=== PATIENT | female | born 2000 | race Caucasian/White ===

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

== ENCOUNTER 2018-06-09 19:20 | Emergency (ER) | payer OTHER ==
[2018-06-09 20:27] LABS: Appearance,Urine Cloudy (Clear); Bacteria,Urine Many /hpf; Bilirubin,Urine Negative (Negative); Blood,Urine Negative (Negative); Color,Urine Yellow; Glucose,Urine (UA) Negative (Negative); Ketones,Urine 1+ (Negative); Leukocyte Esterase,Urine Small (Negative); Mucus,Urine Occasional /hpf; Nitrite,Urine Positive (Negative); PH, Urine 5.5 (5.0-8.0); Protein,Urine Negative (Negative); Specific Gravity,Urine 1.019 (1.001-1.035); Squamous Epithelial Cell,Urine 11 /hpf (0-4); Urobilinogen,Urine <2.0 mg/dL (<2.0); WBC,Urine 1 /hpf (0-5)
[2018-06-09] MEDS ORDERED: KETOROLAC 30 MG/ML 1 ML VIAL IVP STA (21:06)
[2018-06-09] MEDS ORDERED: METOCLOPRAMIDE 5 MG/ML 2 ML VIAL IVP STA (21:06)
[2018-06-09] MEDS ORDERED: diphenhydrAMINE 50 MG/ML 1 ML VIAL IVP STA (21:06)
[2018-06-09] MEDS ORDERED: DEXTROSE 5%-0.45% NACL 1,000 ML IV ONE (21:24)
--- NOTE | 2018-06-09 21:33 | ED ---
Nausea/Vomiting/Diarrhea HPI - General Chief complaint: Nausea/Vomiting/Diarrhea Stated complaint: Vomiting blood, almost 3 months preg Time Seen by Provider: 06/09/18 21:03 Source: patient Mode of arrival: ambulatory Limitations: no limitations - History of Present Illness Initial comments: This patient is a 18-year-old woman who presents to be evaluated after she had an episode of vomiting and had seen some specks of blood in it. The patient states that she had a positive test at the end of April. The patient states she has been having daily nausea but usually only has an episode of vomiting in the morning. The patient states she was at work tonight when this occurred and she left there to come here. She denies any associated symptoms, including no fever or chills, no abdominal pain, no change in bowel movements. She has not had any urinary symptoms. No symptoms of anemia, including no chest pain, palpitations, dyspnea, lightheadedness, syncope or orthostasis. MD complaint: nausea, vomiting Onset/Timin -: hour(s) Description of Vomiting: blood-streaked Associated Abdominal Pain: No Severity scale (1-10): 0 Consistency: intermittent Improves with: none Worsens with: none Context: other () Associated Symptoms: nausea/vomiting - Related Data Home Medications Medication Instructions Recorded Confirmed Acetaminophen [Tylenol Extra 1,000 mg PO TID PRN 06/09/18 06/09/18 Strength] Pnv No.95/Ferrous Fum/Folic AC 1 tab PO DAILY 06/09/18 06/09/18 [ Multivitamin Tablet] Previous Rx's Medication Instructions Recorded Cephalexin [Keflex] 500 mg PO Q6HR #28 cap 06/09/18 Allergies Allergy/AdvReac Type Severity Reaction Status Date / Time Penicillins Allergy Rash/Hives Verified 06/09/18 21:57 Review of Systems ROS Statement: Those systems with pertinent positive or pertinent negative responses have been documented in the HPI. ROS Other: All systems not noted in ROS Statement are negative. Constitutional: Denies: fever, chills Respiratory: Denies: cough, dyspnea Cardiovascular: Denies: chest pain, palpitations, edema Gastrointestinal: Reports: nausea, vomiting, hematemesis. Denies: abdominal pain, diarrhea, melena, hematochezia Genitourinary: Denies: dysuria, frequency, hematuria Musculoskeletal: Denies: back pain Skin: Denies: rash Neurological: Reports: headache (Mild bifrontal). Denies: weakness, numbness, paresthesias, confusion Hematological/Lymphatic: Denies: easy bleeding Past Medical History Past Medical History: No Reported History History of Any Multi-Drug Resistant Organisms: None Reported Past Surgical History: No Surgical Hx Reported Additional Past Surgical History / Comment(s): freya removed 3 yrs old, Past Psychological History: No Psychological Hx Reported Smoking Status: Current every day smoker Past Alcohol Use History: None Reported Past Drug Use History: None Reported General Exam Limitations: no limitations General appearance: alert, in no apparent distress Head exam: Present: atraumatic, normocephalic Eye exam: Present: normal appearance. Absent: scleral icterus, conjunctival injection ENT exam: Present: normal oropharynx Neck exam: Present: normal inspection, full ROM Respiratory exam: Present: normal lung sounds bilaterally. Absent: respiratory distress, wheezes, rales, rhonchi, stridor Cardiovascular Exam: Present: regular rate, normal rhythm, normal heart sounds. Absent: systolic murmur, diastolic murmur, rubs, gallop GI/Abdominal exam: Present: soft. Absent: distended, tenderness, guarding, rebound, rigid, mass Extremities exam: Present: normal inspection, normal capillary refill. Absent: pedal edema, calf tenderness Back exam: Present: normal inspection. Absent: CVA tenderness (R), CVA tenderness (L) Neurological exam: Present: alert Skin exam: Present: warm, dry, intact, normal color. Absent: rash Course Vital Signs 06/09/18 19:59 Temperature 98.8 F Pulse Rate 74 Respiratory 16 Rate Blood Pressure 134/78 O2 Sat by Pulse 100 Oximetry Medical Decision Making - Lab Data Result diagrams: 06/09/18 21:34 06/09/18 21:34 Lab Results 06/09/18 06/09/18 06/09/18 Range/Units 20:00 20:00 21:34 WBC 15.3 H (4.0-11.0) k/uL RBC 4.01 (3.80-5.40) m/uL Hgb 12.9 (11.4-16.0) gm/dL Hct 38.8 (34.0-46.0) % MCV 96.9 (80.0-100.0) fL MCH 32.1 (25.0-35.0) pg MCHC 33.1 (31.0-37.0) g/dL RDW 12.5 (11.5-15.5) % Plt Count 217 (150-450) k/uL Neutrophils % 83 % Lymphocytes % 11 % Monocytes % 3 % Eosinophils % 1 % Basophils % 0 % Neutrophils # 12.7 H (1.3-7.7) k/uL Lymphocytes # 1.7 (1.0-4.8) k/uL Monocytes # 0.5 (0-1.0) k/uL Eosinophils # 0.1 (0-0.7) k/uL Basophils # 0.0 (0-0.2) k/uL Sodium (137-145) mmol/L Potassium (3.5-5.1) mmol/L Chloride (98-107) mmol/L Carbon Dioxide (22-30) mmol/L Anion Gap mmol/L BUN (7-17) mg/dL Creatinine (0.52-1.04) mg/dL Est GFR (CKD-EPI)AfAm (>60 ml/min/1.73 sqM) Est GFR (CKD-EPI)NonAf (>60 ml/min/1.73 sqM) Glucose (74-99) mg/dL Calcium (8.4-10.2) mg/dL Total Bilirubin (0.2-1.3) mg/dL AST (14-36) U/L ALT (9-52) U/L Alkaline Phosphatase (38-126) U/L Total Protein (6.3-8.2) g/dL Albumin (3.5-5.0) g/dL Urine Color Yellow Urine Appearance Cloudy H (Clear) Urine pH 5.5 (5.0-8.0) Ur Specific [place] 1.019 (1.001-1.035) Urine Protein Negative (Negative) Urine Glucose (UA) Negative (Negative) Urine Ketones 1+ H (Negative) Urine Blood Negative (Negative) Urine Nitrite Positive H (Negative) Urine Bilirubin Negative (Negative) Urine Urobilinogen <2.0 (<2.0) mg/dL Ur Leukocyte Esterase Small H (Negative) Urine WBC 1 (0-5) /hpf Ur Squamous Epith Cells 11 H (0-4) /hpf Urine Bacteria Many H (None) /hpf Urine Mucus Occasional H (None) /hpf Urine HCG, Qual Detected (Not Detectd) 06/09/18 Range/Units 21:34 WBC (4.0-11.0) k/uL RBC (3.80-5.40) m/uL Hgb (11.4-16.0) gm/dL Hct (34.0-46.0) % MCV (80.0-100.0) fL MCH (25.0-35.0) pg MCHC (31.0-37.0) g/dL RDW (11.5-15.5) % Plt Count (150-450) k/uL Neutrophils % % Lymphocytes % % Monocytes % % Eosinophils % % Basophils % % Neutrophils # (1.3-7.7) k/uL Lymphocytes # (1.0-4.8) k/uL Monocytes # (0-1.0) k/uL Eosinophils # (0-0.7) k/uL Basophils # (0-0.2) k/uL Sodium 136 L (137-145) mmol/L Potassium 3.9 (3.5-5.1) mmol/L Chloride 103 (98-107) mmol/L Carbon Dioxide 26 (22-30) mmol/L Anion Gap 7 mmol/L BUN 12 (7-17) mg/dL Creatinine 0.48 L (0.52-1.04) mg/dL Est GFR (CKD-EPI)AfAm >90 (>60 ml/min/1.73 sqM) Est GFR (CKD-EPI)NonAf >90 (>60 ml/min/1.73 sqM) Glucose 98 (74-99) mg/dL Calcium 9.4 (8.4-10.2) mg/dL Total Bilirubin 0.3 (0.2-1.3) mg/dL AST 17 (14-36) U/L ALT 22 (9-52) U/L Alkaline Phosphatase 56 (38-126) U/L Total Protein 6.6 (6.3-8.2) g/dL Albumin 4.0 (3.5-5.0) g/dL Urine Color Urine Appearance (Clear) Urine pH (5.0-8.0) Ur Specific [place] (1.001-1.035) Urine Protein (Negative) Urine Glucose (UA) (Negative) Urine Ketones (Negative) Urine Blood (Negative) Urine Nitrite (Negative) Urine Bilirubin (Negative) Urine Urobilinogen (<2.0) mg/dL Ur Leukocyte Esterase (Negative) Urine WBC (0-5) /hpf Ur Squamous Epith Cells (0-4) /hpf Urine Bacteria (None) /hpf Urine Mucus (None) /hpf Urine HCG, Qual (Not Detectd) Disposition Clinical Impression: Hyperemesis gravidarum, Bacteriuria Disposition: HOME SELF-CARE Condition: Good Instructions: Hyperemesis Gravidarum (ED) Prescriptions: Cephalexin [Keflex] 500 mg PO Q6HR #28 cap Is patient prescribed a controlled substance at d/c from ED?: No Referrals: Kenzie Kilgore MD [Primary Care Provider] - 1-2 days
[2018-06-09 21:53] LABS: Basophils % (A) 0 %; Eosinophils # (A) 0.1 k/uL (0-0.7); Eosinophils % (A) 1 %; HCT 38.8 % (34.0-46.0); HGB 12.9 gm/dL (11.4-16.0); Lymphocytes # (A) 1.7 k/uL (1.0-4.8); Lymphocytes % (A) 11 %; MCH 32.1 pg (25.0-35.0); MCHC 33.1 g/dL (31.0-37.0); MCV 96.9 fL (80.0-100.0); Mean Platelet Volume 6.5; Monocytes # (A) 0.5 k/uL (0-1.0); Monocytes % (A) 3 %; Neutrophils # (A) 12.7 k/uL (1.3-7.7); Neutrophils % (A) 83 %; Platelet Count 217 k/uL (150-450); RBC 4.01 m/uL (3.80-5.40); RDW 12.5 % (11.5-15.5); WBC 15.3 k/uL (4.0-11.0)
[2018-06-09 22:05] LABS: ALT 22 U/L (9-52); AST 17 U/L (14-36); Alkaline Phosphatase 56 U/L (38-126); Anion Gap 7 mmol/L; Blood Urea Nitrogen 12 mg/dL (7-17); Calcium 9.4 mg/dL (8.4-10.2); Carbon Dioxide 26 mmol/L (22-30); Chloride 103 mmol/L (98-107); Glucose 98 mg/dL (74-99); Potassium 3.9 mmol/L (3.5-5.1); Sodium 136 mmol/L (137-145); Total Bilirubin 0.3 mg/dL (0.2-1.3); Total Protein 6.6 g/dL (6.3-8.2)
[2018-06-10 00:02] VITALS: BP 111/52; PULSE 96; RESP 18; TEMP 98.3
== END 2018-06-10 00:01 | disposition home or self-care (01) ==
LOC: EC 19:20
DX: O21.0 Mild hyperemesis gravidarum (principal); O99.89 Other specified diseases and conditions complicating pregnancy, childbirth and the puerperium; R82.71 Bacteriuria; R19.7 Diarrhea, unspecified; O99.331 Smoking (tobacco) complicating pregnancy, first trimester; F17.200 Nicotine dependence, unspecified, uncomplicated; Z88.0 Allergy status to penicillin; Z3A.00 Weeks of gestation of pregnancy not specified
CPT/HCPCS: 36415; 80053; 85025; 81001; 81025; 99284; 96374; 96375; 96361 ×2; J1200; J2765

== ENCOUNTER 2022-11-14 12:39 | Emergency (ER) | payer OTHER ==
[2022-11-14 12:44] VITALS: TEMP 98.5
[2022-11-14] MEDS ORDERED: ORPHENADRINE 30 MG/ML 2 ML VIAL IM STA (12:56)
[2022-11-14] MEDS ORDERED: KETOROLAC 15 MG/ML 1 ML VIAL IM STA (12:56)
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
[2022-11-14 14:04] VITALS: BP 122/70; PULSE 78; RESP 18
== END 2022-11-14 14:05 | disposition home or self-care (01) ==
LOC: EC 12:39
DX: R51.9 Headache, unspecified (principal); F17.200 Nicotine dependence, unspecified, uncomplicated; Z88.0 Allergy status to penicillin; V49.40XA Driver injured in collision with unspecified motor vehicles in traffic accident, initial encounter
CPT/HCPCS: 99284; 96372 ×2; J2360; J1885

== ENCOUNTER 2023-11-09 21:07 | Outpatient (CLI) | payer BC, OTHER ==
[2023-11-09 22:25] LABS: Appearance,Urine Cloudy (Clear); Bilirubin,Urine Negative (Negative); Blood,Urine Large (Negative); Color,Urine Yellow; Glucose,Urine (UA) Negative (Negative); Ketones,Urine Negative (Negative); Leukocyte Esterase,Urine Negative (Negative); Mucus,Urine Many /hpf; Nitrite,Urine Negative (Negative); Protein,Urine Trace (Negative); RBC,Urine >182 /hpf (0-5); Specific Gravity,Urine 1.033 (1.001-1.035); Squamous Epithelial Cell,Urine 6 /hpf (0-4); Urobilinogen,Urine <2.0 mg/dL (<2.0); WBC,Urine 1 /hpf (0-5)
[2023-11-09 23:38] VITALS: BP 114/58; PULSE 76; RESP 16; TEMP 97.4
--- NOTE | 2023-11-21 15:51 | P.MSEPDOC ---
Presenting Problems - Arrival Data Date of Arrival on Unit: 11/09/23 Time of Arrival on Unit: 21:07 Mode of Transport: Ambulatory - Complaint OB-Reason for Admission/Chief Complaint: Pain Comment: Pt presents to triage with complaints of back pain at 24 weeks preg. states pain has been present for several weeks but tylenol has always helped and today it stopped helping. rates pain 8/10. pt has had 2 prior vag deliveries and primary cs for twins in 2019. planning to with this baby. points to center lower back sacral area centered. has tried hot shower, baths, postion changes. left work early tonight due to pain Medical History - Information : 4 Para: 4 Term: 4 : 0 Abortions: Spontaneous or Elective: 0 Number of Living Children: 4 - Gestational Age Gestational Age by NOBLE (wks/days): 23 Weeks and 6 Days - History Complications: Prior Review of Systems - Review of Systems Constitutional: No problems Breast: No problems ENT: No problems Cardiovascular: No problems Respiratory: No problems Gastrointestinal: No problems Genitourinary: No problems Musculoskeletal: No problems Neurological: No problems Skin: No problems Vital Signs - Temperature Temperature: 97.4 F Temperature Source: Temporal Artery Scan - Pulse Right Pulse Rate: 76 Pulse Assessment Method: Automatic Cuff - Respirations Respiratory Rate: 16 O2 Sat by Pulse Oximetry: 98 - Blood Pressure Right Arm Blood Pressure: 114/58 Blood Pressure Mean: 76 Blood Pressure Source: Automatic Cuff Medical Screen Scoring - Uterine Contractions Frequency From (mins): 0 Frequency To (mins): 0 Duration From (seconds): 0 Duration To (seconds): 0 Resting: Soft to palpation - Assessment - Baby A Baseline FHR: 130 Physician Notification - Physician Notified Physician Notified Date: 11/09/23 Physician Notified Time: 21:54 Physician: Zabrina Nicholson Order Received: Yes (UA) - Notification Comment Comment: ua results reviewed and discussed with Dr Dorado. indicative of Kidney stone despite pain not presenting typically. order received to discharge pt home with instructions to strain urine, orally hydrate Maternal Triage Index - Maternal Triage Index Presenting for scheduled procedure w/no complaint: No - Stat/Priority 1 Stat Priority 1: No - Urgent/Priority 2 Urgent Priority 2: No - Prompt/Priority 3 Prompt Priority 3: No - Non-Urgent/Priority 4 Non-Urgent Priority 4: Yes Criteria Met for Priority 4: back pain Disposition - Disposition OB Disposition: Discharge to home Discharge Date: 11/09/23 Discharge Time: 23:00 I agree with the RN Medical Screening Exam: Yes Physician's MSE Comment: I have neither seen nor examined the patient Case reviewed; plan agreed upon as documented in EMR&OBIX.: Yes Diagnosis: MATERNAL CARE FOR PROBLEM, UNSP, SECOND * DO NOT USE *
== END 2023-11-09 23:00 | disposition home or self-care (01) ==
LOC: FBPOP 21:07
PROVIDERS: ATTEND Obstetrics & Gynecology
DX: O26.892 Other specified pregnancy related conditions, second trimester (principal); M54.50 Low back pain, unspecified; O99.332 Smoking (tobacco) complicating pregnancy, second trimester; F17.200 Nicotine dependence, unspecified, uncomplicated; Z3A.23 23 weeks gestation of pregnancy; Z88.0 Allergy status to penicillin
CPT/HCPCS: 81001; 99213

== ENCOUNTER 2024-02-19 06:24 | Inpatient (IN) | payer BC ==
[2024-02-19] MEDS ORDERED: METHYLERGONOVINE 0.2 MG/ML 1 ML AMP IM PRN (07:02)
[2024-02-19] MEDS ORDERED: TERBUTALINE 1 MG/ML VIAL SQ PRN (07:02)
[2024-02-19] MEDS ORDERED: CARBOPROST TROMETHAMINE 250 MCG/ML 1 ML AMP IM PRN (07:02)
[2024-02-19] MEDS ORDERED: OXYTOCIN 10 UNIT/ML 1 ML VIAL IM PRN (07:02)
[2024-02-19] MEDS ORDERED: miSOPROStoL 200 MCG TAB PO PRN (07:02)
[2024-02-19] MEDS ORDERED: LIDOCAINE 0.5% (PF) 5 MG/ML (50 ML SDV) SQ PRN (07:02)
[2024-02-19] MEDS ORDERED: miSOPROStoL 200 MCG TAB RECTAL PRN (07:02)
[2024-02-19] MEDS ORDERED: TRANEXAMIC 1,000 MG/100ML-NACL 1,000 MG in EMPTY BAG 1 BAG IV PRN (07:02)
[2024-02-19] MEDS ORDERED: NALBUPHINE 10 MG/ML (10 ML MDV) IV PRN (07:03)
[2024-02-19 07:18] LABS: Basophils % (A) 0 %; Eosinophils % (A) 0 %; HCT 41.1 % (34.0-46.0); HGB 13.5 gm/dL (11.4-16.0); Lymphocytes # (A) 1.9 k/uL (1.0-4.8); Lymphocytes % (A) 19 %; MCH 32.5 pg (25.0-35.0); MCHC 32.9 g/dL (31.0-37.0); MCV 98.7 fL (80.0-100.0); Mean Platelet Volume 9.8; Monocytes # (A) 0.4 k/uL (0-1.0); Monocytes % (A) 4 %; Neutrophils # (A) 7.6 k/uL (1.3-7.7); Neutrophils % (A) 75 %; Platelet Count 201 k/uL (150-450); RBC 4.16 m/uL (3.80-5.40); RDW 12.2 % (11.5-15.5); WBC 10.2 k/uL (3.8-10.6)
[2024-02-19] MEDS: LACTATED RINGERS 1,000 ML IV SCH (07:53)
[2024-02-19] MEDS ORDERED: SODIUM CHLORIDE 0.9% 250 ML BAG ONE (08:18)
[2024-02-19] MEDS ORDERED: fentaNYL (PF) 50 MCG/ML 5 ML AMP ONE (08:18)
[2024-02-19] MEDS ORDERED: ROPIVACAINE 5 MG/ML 30 ML VIAL ONE (08:18)
[2024-02-19] MEDS: OXYTOCIN 30 UNITS/500 ML NS 30 UNIT in SALINE 1 500ML.BAG IV SCH (10:41)
[2024-02-19] MEDS ORDERED: HYDROCORTISONE 2.5% RECTAL CREAM 30 GM TUBE RECTAL PRN (10:53)
[2024-02-19] MEDS ORDERED: diphenhydrAMINE 50 MG/ML 1 ML VIAL IVP PRN ×2 (10:53)
[2024-02-19] MEDS ORDERED: SIMETHICONE 80 MG CHEWABLE PO PRN (10:53)
[2024-02-19] MEDS ORDERED: HYDROcodone/APAP 7.5-325MG 1 EACH TAB PO PRN (10:53)
[2024-02-19] MEDS ORDERED: diphenhydrAMINE 25 MG CAP PO PRN (10:53)
[2024-02-19] MEDS ORDERED: BENZOCAINE/MENTHOL SPRAY 1 GM/SPRAY AEROSOL TOPICAL PRN (10:53)
[2024-02-19] MEDS ORDERED: ACETAMINOPHEN TAB 325 MG TAB PO PRN (10:53)
[2024-02-19] MEDS ORDERED: diphenhydrAMINE 50 MG CAP PO PRN (10:53)
[2024-02-19] MEDS ORDERED: LANOLIN CREAM 1 GM TUBE TOPICAL PRN (10:53)
[2024-02-19] MEDS ORDERED: HYDROcodone/APAP 5-325MG 1 EACH TAB PO PRN (10:53)
[2024-02-19] MEDS ORDERED: ZOLPIDEM 5 MG TAB PO PRN (10:53)
--- NOTE | 2024-02-19 10:59 | P.HPOB ---
History of Present Illness H&P Date: 02/19/24 Chief Complaint: 38-3/7 weeks, active labor, previous section The patient is a 23-year-old 4 para 3-0-0-4 who presents to labor and delivery at 38-3/7 weeks as established by last menstrual period and confirmed by 8-week ultrasound in early active labor with all signs reassuring, category 1 heart rate tracing. She carries a history of a previous section for twins in 2019 and has requested vaginal trial of labor having had 2 previous normal vaginal deliveries. The risks and complications have been discussed. She did have an episode of nephrolithiasis during the which has not recurred. Her was otherwise uncomplicated. She has expressed a desire for tubal ligation/permanent sterilization and understands that this would likely be undertaken around the 6-week visit. Group B strep status is negative. Obstetrical history: 4 para 3-0-0-4 with 2 term vaginal deliveries and 1 term section for twins. Current statistics are listed in history of present illness. EDC of 10-21 was established by last menstrual period and confirmed by 8-week ultrasound. Laboratory workup demonstrates a blood type of O+ with a negative antibody screen. Rubella status is immune. Early Glucola and second trimester Glucola were both normal. Group B strep status is negative. Gynecologic history: Unremarkable with no history of any infections to include STDs. Review of Systems Review of systems is confined to history of present illness. Past Medical History Past Medical History: No Reported History History of Any Multi-Drug Resistant Organisms: None Reported Past Surgical History: Section Additional Past Surgical History / Comment(s): freya removed 3 yrs old, Past Anesthesia/Blood Transfusion Reactions: No Reported Reaction Additional Psychological History / Comment(s): depression after 1st baby Smoking Status: Vaper Past Alcohol Use History: None Reported Past Drug Use History: None Reported Medications and Allergies Home Medications Medication Instructions Recorded Confirmed Type Pnv No.95/Ferrous Fum/Folic AC 1 tab PO DAILY 06/09/18 02/19/24 History [ Multivitamin Tablet] Aspirin [Moonshine Aspirin EC] 81 mg PO DAILY 11/09/23 02/19/24 History Omeprazole 1 tab PO DAILY 02/19/24 02/19/24 History Allergies Allergy/AdvReac Type Severity Reaction Status Date / Time Penicillins Allergy Rash/Hives Verified 11/09/23 21:23 Exam Vital Signs Temp Pulse Resp BP Pulse Ox 02/19/24 06:52 97.0 F L 79 18 135/85 99 Intake and Output 02/18/24 02/19/24 02/19/24 22:59 06:59 14:59 Other: Weight 85.275 kg 85.275 kg In general, this is a well-developed, well-nourished white female in no acute distress. Her heart has a regular rhythm and rate without murmur. Her lungs are clear to auscultation bilateral in all carr. Her abdomen is gravid, nondistended, has normal active bowel sounds, soft, nontender, and without any palpable masses aside from uterine fundus. Her extremities are without any cyanosis, clubbing, or significant edema and are nontender to palpation bilaterally. At presentation, her digital cervical examination was demonstrated to be 5 cm dilated, 80% effaced, with a vertex and presentation at -2 station with a bulging bag of water. Results Result Diagrams: 02/19/24 07:02 Assessment and Plan (1) Active labor at term Current Visit: Yes Status: Acute Code(s): FGI4116 - SNOMED Code(s): 61192386 (2) Previous section Current Visit: Yes Status: Acute Code(s): Z98.891 - HISTORY OF UTERINE SCAR FROM PREVIOUS SURGERY SNOMED Code(s): 051916183 Plan: The patient is admitted for vaginal trial of labor with the expectation for successful vaginal after section. The risks and complications have been discussed. She will have close maternal and surveillance and expectant management will be practiced. She is a good candidate for either IV or epidural analgesia and has requested epidural which has been placed prior to my seeing the patient.
--- NOTE | 2024-02-19 11:01 | P.PROBDLV ---
Vaginal Delivery Note - . Vaginal Delivery Note: The patient is a 23-year-old 4 para 3-0-0-4 who presents to labor and delivery at 38-3/7 weeks by good dating parameters in early active labor with all signs reassuring, category 1 heart rate tracing. Her has been uncomplicated though she carries a history of a previous section for twins and has requested vaginal trial of labor. She additionally has requested tubal ligation should that become a possibility during her hospitalization but understands that it would likely be carried out in the phase at approximately 6 weeks. She had an episode of nephrolithiasis during the but no repetitive episodes. On labor and delivery, she had an epidural catheter placed for analgesia and at approximately 8 cm of dilation, underwent artificial rupture of membranes for moderately meconium stained fluid. She progressed fairly quickly to complete and 0 station. She pushed over the course of approximately 3-4 contractions to a normal spontaneous vaginal delivery of a viable 6 pound 12.3 ounce baby girl with Apgars of 9 at 1 minute and 10 at 5 minutes delivered in the direct occiput anterior position. The placenta was delivered spontaneously, intact, and grossly normal though it was meconium stained. There was a grossly normal, centrally inserted three-vessel cord. There were no lacerations of the perineum, vagina, or cervix. Estimated blood loss for the case was 100 mL or less. There were no complications. All sponge, instrument, and needle counts were correct. Both mother and infant are resting comfortably in recovery after successful vaginal after section.
[2024-02-19] MEDS: IBUPROFEN 600 MG TAB PO PRN (17:16)
[2024-02-19 20:33] VITALS: RESP 16
[2024-02-19] MEDS: SENNOSIDES-DOCUSATE SODIUM 1 EACH TAB PO SCH (20:37)
[2024-02-20 04:31] LABS: Basophils % (A) 0 %; Eosinophils # (A) 0.1 k/uL (0-0.7); Eosinophils % (A) 1 %; HCT 37.6 % (34.0-46.0); HGB 12.3 gm/dL (11.4-16.0); Lymphocytes # (A) 2.3 k/uL (1.0-4.8); Lymphocytes % (A) 23 %; MCH 32.7 pg (25.0-35.0); MCHC 32.7 g/dL (31.0-37.0); MCV 99.8 fL (80.0-100.0); Mean Platelet Volume 10.1; Monocytes # (A) 0.4 k/uL (0-1.0); Monocytes % (A) 4 %; Neutrophils # (A) 6.8 k/uL (1.3-7.7); Neutrophils % (A) 69 %; Platelet Count 181 k/uL (150-450); RBC 3.77 m/uL (3.80-5.40); RDW 12.3 % (11.5-15.5); WBC 9.8 k/uL (3.8-10.6)
[2024-02-20 08:40] VITALS: BP 119/65; PULSE 78; TEMP 98.1
--- NOTE | 2024-02-20 11:24 | P.DS ---
Providers Date of admission: 02/19/24 06:49 Expected date of discharge: 02/20/24 Attending physician: Richard Victoria Primary care physician: Stated None - Discharge Diagnosis(es) (1) Active labor at term Current Visit: Yes Status: Acute (2) Previous section Current Visit: Yes Status: Acute (3) Vaginal after section Current Visit: Yes Status: Acute Hospital Course: The patient is a 23-year-old 4 para 3-0-0-4 who presents to labor and delivery at 38-3/7 weeks in active labor with all signs reassuring, category 1 heart rate tracing. She has a history of 2 normal vaginal deliveries followed by delivery for twins and has requested vaginal trial of labor for this . Her has been otherwise relatively uncomplicated aside from a single episode of nephrolithiasis. She has expressed a desire for tubal ligation either in the hospital or at the phase. Group B strep status is negative. On labor and delivery, she underwent artificial rupture of membranes for clear fluid after an epidural catheter had been placed for analgesia. She progressed to complete and then pushed to a normal spontaneous vaginal delivery of a viable 6 pound 12 ounce baby girl with Apgars of 9 at 1 minute and 10 at 5 minutes. Her course was unremarkable with vital signs remaining stable and her temperature was afebrile throughout. She was deemed stable for discharge on day #1 and was discharged home to follow-up in the office in 6 weeks time routinely. Discharge instructions included calling for any significantly increased bleeding or foul-smelling lochia, significantly increased fever or abdominal pain, perineal complaints, breast complaints, or anything else that concerned her. She was additionally instructed to have nothing in the vagina for at least 6 weeks time to include intercourse. She understood her instructions and agrees to follow-up as noted above. Discharge medications included continued vitamins as she has opted to breast-feed. She was otherwise to use [id number] analgesic pain medications as needed. Maternal blood type is O+ and rubella status is immune. Procedures: #1. Epidural analgesia #2. Artificial rupture of membranes #3. Normal spontaneous vaginal delivery, successful Patient Condition at Discharge: Stable Plan - Discharge Summary New Discharge Prescriptions: No Action Pnv No.95/Ferrous Fum/Folic AC [ Multivitamin Tablet] 1 tab PO DAILY Aspirin [[place] Aspirin EC] 81 mg PO DAILY Omeprazole 1 tab PO DAILY Discharge Medication List Pnv No.95/Ferrous Fum/Folic AC [ Multivitamin Tablet] 1 tab PO DAILY 06/09/18 [History] Aspirin [[place] Aspirin EC] 81 mg PO DAILY 11/09/23 [History] Omeprazole 1 tab PO DAILY 02/19/24 [History] Follow up Appointment(s)/Referral(s): Richard Victoria MD [STAFF PHYSICIAN] - 6 Weeks Discharge Disposition: HOME SELF-CARE
== END 2024-02-20 11:20 | disposition home or self-care (01) | DRG 807 ==
LOC: FBPOP 06:24 → 4FBP 06:49
PROVIDERS: ADMIT Obstetrics & Gynecology; ATTEND Obstetrics & Gynecology
PROC: 10E0XZZ Delivery of Products of Conception, External Approach (ICD-10-PCS; principal; 2024-02-19)
PROC: 10907ZC Drainage of Amniotic Fluid, Therapeutic from Products of Conception, Via Natural or Artificial Opening (ICD-10-PCS; principal; 2024-02-19)
DX: O34.219 Maternal care for unspecified type scar from previous cesarean delivery (principal); Z37.0 Single live birth; O99.334 Smoking (tobacco) complicating childbirth; F17.290 Nicotine dependence, other tobacco product, uncomplicated; O77.0 Labor and delivery complicated by meconium in amniotic fluid; Z87.442 Personal history of urinary calculi; Z3A.38 38 weeks gestation of pregnancy; Z79.82 Long term (current) use of aspirin
CPT/HCPCS: 59025; 85025; 86850; 86900; 86901; 99213

== ENCOUNTER → 2024-04-07 | Outpatient (CLI) | payer BC ==
[2024-04-07 15:15] LABS: Basophils # (A) 0.03 X 10*3/uL (0.00-0.10); Basophils % (A) 0.5 %; Eosinophils # (A) 0.04 X 10*3/uL (0.04-0.35); Eosinophils % (A) 0.7 %; Lymphocytes # (A) 2.85 X 10*3/uL (0.90-5.00); MCH 30.7 pg (27.0-32.0); MCHC 32.6 g/dL (32.0-37.0); MCV 94.3 FL (80.0-97.0); Mean Platelet Volume 10.4 FL (9.5-12.2); Monocytes # (A) 0.32 X 10*3/uL (0.20-1.00); Monocytes % (A) 5.6 %; NRBC Per 100 WBC 0 X 10*3/uL (0.00-0.01); Neutrophils # (A) 2.45 X 10*3/uL (1.80-7.70); Platelet Count 247 X 10*3/uL (140-440); RBC 4.56 X 10*6/uL (4.10-5.20); RDW 11.6 % (11.5-14.5)
== END | disposition home or self-care (01) ==
LOC: LABPAT 08:38
PROVIDERS: ATTEND Obstetrics & Gynecology
DX: Z01.812 Encounter for preprocedural laboratory examination (principal)
CPT/HCPCS: 85025

== ENCOUNTER 2024-04-17 06:12 | Day surgery (SDC) | payer BC ==
[2024-04-11 10:44] VITALS: BMI 30.9
[~2024-04-17 06:12] MED LIST: HYDROmorphone 0.5 MG/0.5 ML SYRINGE IVP PRN; LIDOCAINE 1% (10MG/ML) FOR IV START INTRADERMA PRN; MIDAZOLAM 2 MG/2 ML VIAL IV PRN; Pre Op ABX Message 1 EACH MISC MISCELLANE ONE
[2024-04-17 06:48] VITALS: RESP 16
[2024-04-17] MEDS: LACTATED RINGERS 1,000 ML IV SCH (06:57)
[2024-04-17] MEDS: ONDANSETRON 4 MG/2 ML VIAL IVP ONE (07:01)
[2024-04-17] MEDS: DEXAMETHASONE SOD PHOSPHATE 4 MG/ML 1 ML VIAL IV ONE (07:02)
[2024-04-17] MEDS ORDERED: SUCCINYLCHOLINE CHLORIDE 200 MG/10 ML VIAL IV ONE (07:23)
[2024-04-17] MEDS ORDERED: LIDOCAINE 4% LTA KIT (4 ML) TOPICAL ONE (07:23)
[2024-04-17] MEDS ORDERED: ROCURONIUM 10 MG/ML (5 ML VIAL) IV ONE (07:23)
[2024-04-17] MEDS ORDERED: NEOSTIGMINE 1 MG/ML 10 ML VIAL ONE (07:23)
[2024-04-17] MEDS ORDERED: PROPOFOL 10 MG/ML 20 ML VIAL IV ONE (07:23)
[2024-04-17] MEDS ORDERED: fentaNYL (PF) 50 MCG/ML 2 ML AMP ONE (07:23)
[2024-04-17] MEDS ORDERED: GLYCOPYRROLATE 0.2 MG/ML 2 ML VIAL ONE (07:23)
[2024-04-17] MEDS ORDERED: MIDAZOLAM 2 MG/2 ML VIAL ONE (07:23)
[2024-04-17] MEDS ORDERED: KETOROLAC 15 MG/ML 1 ML VIAL ONE (07:23)
[2024-04-17] MEDS: BUPIVACAINE (PF) 0.5% 30 ML VIAL SQ ONE ×2 (07:48→08:13)
[2024-04-17] MEDS ORDERED: KETOROLAC 15 MG/ML 1 ML VIAL IVP PRN (08:24)
[2024-04-17] MEDS ORDERED: ONDANSETRON 4 MG/2 ML VIAL IVP PRN (08:24)
[2024-04-17] MEDS ORDERED: SIMETHICONE 80 MG CHEWABLE PO PRN (08:24)
[2024-04-17] MEDS ORDERED: diphenhydrAMINE 25 MG CAP PO PRN (08:24)
[2024-04-17] MEDS ORDERED: IBUPROFEN 600 MG TAB PO PRN (08:24)
[2024-04-17] MEDS ORDERED: ACETAMINOPHEN TAB 325 MG TAB PO PRN (08:24)
[2024-04-17] MEDS ORDERED: METOCLOPRAMIDE 5 MG/ML 2 ML VIAL IVP PRN (08:24)
[2024-04-17] MEDS ORDERED: LACTATED RINGERS 1,000 ML IV SCH (08:30)
--- NOTE | 2024-04-17 08:32 | P.OP ---
Date of Procedure: 04/17/24 Preoperative Diagnosis: #1. Multiparity #2. Undesired fertility Postoperative Diagnosis: Same Procedure(s) Performed: #1. Laparoscopic bilateral salpingectomy Anesthesia: LOTTIE Surgeon: Richard Victoria Estimated Blood Loss (ml): 2 IV fluids (ml): 600 Urine output (ml): 30 Pathology: other (Bilateral fallopian tubes, 1 specimen) Condition: stable Disposition: PACU Operative Findings: Preoperative pelvic examination demonstrated a roughly 5 to 6-week midplane mobile normal shaped uterus with normal adnexa bilaterally. Intraoperatively, the uterus was somewhat boggy in appearance with normal bilateral fallopian tubes and ovaries. The appendix was seen and normal as was the remainder of the small and large bowel. The liver, gallbladder and diaphragm also appeared normal. The fallopian tube was removed from its fimbriated end to the cornual insert bilaterally and each sent together for pathological diagnoses. Description of Procedure: The patient was prepped and draped in usual fashion after general endotracheal anesthesia was administered by the anesthesiologist. A speculum was placed in the anterior lip of the cervix grasped with a single-tooth tenaculum allowing placement of an acorn cannula for uterine manipulation. The bladder was drained of approximately 30 mL of clear marilin urine. Attention was turned to the abdomen where a 5 mm incision was made and a vertical fold of the umbilicus line insertion of a 5 mm optical trocar under direct visualization without difficulty. A pneumoperitoneum was infused. A site was selected in the right lower quadrant where 5 mm incision was made in the transverse plane along insertion of another 5 mm optical trocar under direct visualization without difficulty. A mirroring trocar was placed in the left lower quadrant. Trendelenburg positioning and the blunt probe were utilized to sweep the bowel from the pelvis. The findings are normal as noted above. A grasper was utilized to grasp the right fallopian tube at its fimbriated end and the LigaSure device utilized to remove the tube from its underlying tissues careful to stay away from the infundibulopelvic ligament to its insertion in the cornu of the uterus. The tube was then removed through one of the secondary trocars. A similar operation was carried out on the left side without difficulty. Reexamination of the pelvis demonstrated no pathology and no ongoing bleeding from the surgical sites. The remainder of the abdomen was explored with the findings as noted above, entirely normal small bowel, large bowel, appendix, liver, gallbladder, and diaphragm. The instrumentation was then removed and the pneumoperitoneum entirely evacuated through the 3 ports which were then removed. The skin incisions were closed with interrupted subcuticular stitches of 4-0 Vi cryl followed by half-inch Steri-Strips placed with Mastisol. The 3 incisions were then infused with a total of 10 mL of half percent Marcaine without epinephrine. Estimated blood loss for the case was 2 mL. There were no complications. All sponge, instrument, and needle counts were correct. The patient tolerated the procedure well and proceeded to the recovery room in stable condition.
[2024-04-17 08:33] VITALS: TEMP 97
[2024-04-17 10:23] VITALS: BP 112/68; PULSE 62
== END 2024-04-17 10:56 | disposition home or self-care (01) ==
LOC: OR 06:12
PROVIDERS: ATTEND Obstetrics & Gynecology
DX: Z30.2 Encounter for sterilization (principal); F17.290 Nicotine dependence, other tobacco product, uncomplicated; Z79.82 Long term (current) use of aspirin; Z79.899 Other long term (current) drug therapy; Z88.0 Allergy status to penicillin
CPT/HCPCS: 81025; 58661; J2250; J0330; J1100; J2710; J2405; J3010; J1885; J2704; J0665; J1596; 88302